=== PATIENT | female | born 1995 | race Two or more races ===

== ENCOUNTER 2018-04-04 11:21 | Emergency (ER) | payer MEDICAID ==
[~2018-04-04] VITALS: Ht 149.9 cm; Wt 63.5 kg
[2018-04-04 12:09] VITALS: BP 110/63
[2018-04-04 13:16] LABS: Urine Bacteria FEW /hpf (None Seen); Urine Blood Negative /uL (Negative); Urine Specific Gravity 1.019 (1.001-1.035); Urine WBC 14 /hpf (0 - 5)
== END 2018-04-04 15:06 | disposition left against medical advice (07) ==
LOC: ER 11:21
DX: R05 Cough (principal); Z53.21 Procedure and treatment not carried out due to patient leaving prior to being seen by health care provider
CPT/HCPCS: 81001; 81025